=== PATIENT | female | born 1995 | race Caucasian/White ===

== ENCOUNTER 2022-07-14 10:55 | Inpatient (IN) | payer OTHER, SELFPAY ==
[2022-07-14] VITALS (29 sets, daily range): BP systolic 119–176; BP diastolic 69–114; PULSE 73–127; RESP 16–18; TEMP 36.4–37.1; O2SAT 98–99; BMI 31.1
[2022-07-14] MEDS: Lactated Ringers 1,000 ML 200 ML IV (10:45)
[2022-07-14 11:13] LABS: Absolute Lymphocyte Count 1.52 X10^3/uL (0.83-4.51); Absolute Neutrophil Count 5.4 X10^3/uL (2.0-7.7); Basophil# 0.02 X10^3/uL; Basophil% 0.3 % (0-1); Eosinophil# 0.06 X10^3/uL; Eosinophils% 0.8 % (0-5); Hematocrit 38.6 % (37-47); Hemoglobin 13.3 g/dL (12.0-15.0); Lymphocyte # 1.52 X10^3/ul (0.83-4.51); Lymphocyte % 20.4 % (19-41); Mean Corp Hgb Conc 34.5 g/dL (32-36); Mean Corpuscular Hgb 29.1 pg (27.0-32.0); Mean Corpuscular Volume 84.5 fL (81-99); Mean Platelet Vol. 11.3 fl (6.2-12.0); Monocyte# 0.42 X10^3/uL; Monocyte% 5.6 % (0-10); NRBC Flagged by Analyzer 0 % (0-5); Neutrophil # 5.39 X10^3/uL (2.7-7.7); Neutrophil % 72.2 % (47-70); Platelet Count 253 K/mm3 (150-450); RBC Distribution Width CV 12.7 % (11.6-14.6); RBC Distribution Width SD 38.5 fl (35.1-43.9); Red Blood Count 4.57 M/mm3 (4.2-5.4); White Blood Count 7.5 K/mm3 (4.4-11.0)
--- NOTE | 2022-07-14 11:57 | HP.PCM.OB_ITS ---
HPI - General General Date of Admission: 07/14/22 Date of Service: 07/14/22 Chief Complaint: labor HPI Narrative STACY TONEY, is a 26 F who presents in labor. Ctx's started around 7 am and she also had a gush of clear fluid at that time. No constant leaking of fluid and she isnt sure if it was incontinence of urine. No bleeding. Good FM. No GURROLA or vision changes. Maternal Data Information Gestational age: 37w0d [facility] Medical History (Updated 07/14/22 @ 12:[address] Liza Leyva, DO) Anxiety History of pre-term labor Shoulder injury Home Medications diphenhydramine HCl 25 mg capsule (Benadryl) 5 - 10 mg PO TID PRN Sleep/ Congestion 07/14/22 [History Last Taken 07/12/22] vitamin#30 30 mg iron-10 mg iron-folic acid 1 mg-omg3 capsule 1 cap PO DAILY 07/14/22 [History Last Taken 07/13/22] Allergy/AdvReac Type Severity Reaction Status Date / Time amoxicillin Allergy Rash Verified 07/14/22 11:05 cefaclor [From Ceclor] Allergy Rash Verified 07/14/22 11:05 latex AdvReac Rash Verified 07/14/22 11:05 Social History Smoking Status: Former smoker History Elective abortions Hx Para 1 Spontaneous abortions Hx # Term Pregnancies Ectopic pregnancies Hx # Pregnancies Multiple births # of living children Addt'l History: H/o PTD at 36 weeks Abnormal 1 hour GTT but normal 3 hour GTT H/o white coat HTN H/o anxiety NST FHR Rate Baby A FHR Category:: Category I Uterine Activity:: ctx q 4-6 min Vital Signs Vital Signs Vital Signs: 07/14/22 11:54 07/14/22 11:54 07/14/22 11:54 Temperature Temperature Source Temporal Pulse Rate 125 H Blood Pressure 155/105 H BP Systolic 155 BP Diastolic 105 07/14/22 11:54 Temperature 97.8 F Temperature Source Pulse Rate Blood Pressure BP Systolic BP Diastolic Weight Weight: 175 lb 12.8 oz Body Mass Index (BMI) 31.1 Physical Exam Const alert and no apparent distress Constitutional Narrative: Uncomfortable with ctx's Labs Labs Labs: Blood Type Pending Antibody Screen Pending Hct 38.6 % (37-47) Hgb 13.3 g/dL (12.0-15.0) Assessment & Plan (1) 37 weeks gestation of : PLAN: Admit for routine intrapartum care. Patient would like to proceed unmedicated. GBS negative. Cvx 680/-1, AROM performed for small amount of clear fluid. Category 1 tracing. Expected weight < 4,500 g and pelvis adequate. Anticipate vaginal delivery. (2) History of anxiety: (3) White coat syndrome with hypertension: PLAN: No symptoms of pre e. Pre e workup in office negative on 07/06/22. Cont to monitor for symptoms. (4) History of delivery: (5) Active labor at term:
[2022-07-14] MEDS: LACTATED RINGERS 500 ML 999 ML IV (13:13)
[2022-07-14] MEDS: fentaNYL-bupivacaine (epidural) 100 ML BAG EPIDURAL (14:06)
[2022-07-14] MEDS: Oxytocin 10 UNITS/ML Vial IM (14:53)
[2022-07-14] MEDS: miSOPROStol 200 MCG Tablet 1000 MCG RC (14:58)
--- NOTE | 2022-07-14 15:05 | PCM.OPRPT ---
Problems Associated Problem List Diagnoses (1) 37 weeks gestation of : (2) Active labor at term: Report of Operation Date of Procedure: 07/14/22 Pre-Operative Diagnosis: 37 week gestation, active labor at term Post-Operative Diagnosis: As above Surgery/Procedure Performed:: Description of Surgical Findings:: VMI delivered in LORE position. Apgars 9,9. Normal appearing placenta with 3VC. No lacerations. Surgeon: Liza Leyva Type of Anesthesia: Epidural Special Medications: None Specimen's removed: Placenta Drains: Forrest Estimated Blood Loss (mL): 150 Fluids Replaced: N/A Description of Procedure: Patient was complete and pushing. The head of the was delivered in left occiput anterior position followed by the anterior shoulder, posterior shoulder, and body of infant spontaneously without any excessive traction, force, or delay. A vigorous viable male infant was delivered atraumatically and placed on maternal abdomen. The cord was clamped and cut after a 60 sec delay by the father of the baby. The placenta was delivered with fundal massage. The placenta was normal-appearing and intact with a three-vessel cord. IM Pitocin was given. The uterus was boggy and explored and cleared of clot. The uterus firmed with manual massage. No lacerations were noted. Rectal Cytotec was placed. Vaginal sweep was performed. Sponge counts were correct. Grafts/Implants Used: None Complications None Admit VTE Documentation VTE Present on Admission: No
[2022-07-15] VITALS (8 sets, daily range): BP systolic 141–150; BP diastolic 97–102; PULSE 44–98; RESP 16–18; TEMP 36.1–36.9; O2SAT 79–100
--- NOTE | 2022-07-15 01:27 | NURSING ---
Pt states she has white coat syndrome. Pt states she becomes very anxious and shakes when her blood pressure is taken. RN notes MD report also states pt has white coat syndrome. Denies headache, blurry vision, nausea, vomiting. RN notes Fundus is firm, no swelling in legs, reflexes are normal.
[2022-07-15] MEDS: Ibuprofen 600 MG Tablet PO (03:53)
--- NOTE | 2022-07-15 09:23 | PCM.PN.OB ---
Subjective Subjective Pt doing well. Denies GURROLA, vision changes, upper abd pain, malaise. Lochia normal. . No CP, SOb, leg pain. Artur diet and ambulating and voiding well. She reports significant anxiety with BP checks and being here in the hospital. She would like to be discharged as soon as possible. She states as soon as the BP cuff starts to inflate she gets anxious and is unable to calm herself. Objective Data Objective Data Vital Signs: Vital Signs Temp Pulse Resp BP Pulse Ox O2 Del Method 97 F L 98 16 142/100 H 99 Room Air 07/15/22 08:20 07/15/22 08:20 07/15/22 08:20 07/15/22 08:20 07/15/22 08:20 07/15/22 08:20 Oxygen Delivery Method Room Air Weight: 175 lb 12.8 oz Body Mass Index (BMI) 31.1 Intake & Output: Intake and Output for Last 24 Hours 07/13/22 07/14/22 07/15/22 23:59 23:59 23:59 Intake Total 1243.33 / 1243.33 Balance 1243.33 / 1243.33 Lab / Micro Data Result Diagrams: 07/14/22 11:00 Labs: Laboratory Results - last 24 hr 07/14/22 11:00: WBC 7.5, RBC 4.57, Hgb 13.3, Hct 38.6, MCV 84.5, MCH 29.1, MCHC 34.5, RDW Std Deviation 38.5, RDW Coeff of Bobby 12.7, Plt Count 253, MPV 11.3, Immature Gran % (Auto) 0.700, Neut % (Auto) 72.2 H, Lymph % (Auto) 20.4, Marin % (Auto) 5.6, Eos % (Auto) 0.8, Baso % (Auto) 0.3, Absolute Neuts (auto) 5.4, Absolute Lymphs (auto) 1.52, Nucleated RBC % 0 07/14/22 11:00: Blood Type A POSITIVE, Antibody Screen NEGATIVE Physical Exam Const alert and no apparent distress General Appearance: comfortable Extremity Extremity Narrative: 2+ patellar reflexes Assessment & Plan (1) History of anxiety: (2) White coat syndrome with hypertension: (3) Vaginal delivery: PLAN: PPD # 1 s/p . Doing well and desires discharge. Pre e workup in negative. She has remained completely asymptomatic with no pre e symptoms. She notes significant anxiety with BP cuff and being in the hospital. She has a BP cuff at home. Instructed her to check 1-2 times a day and keep a log. Reviewed pre e signs and symptoms and reasons to call. Send note to office staff to have pt return in 1 week for BP check. She is not currently established with a provider for anxiety. Her PCP had her on multiple medications in the past for this and she feels she did not do well on medication. Recommend that she establish with a counselor. Information given on [facility] and she will call tomorrow for an appointment.
--- NOTE | 2022-07-15 09:27 | PCM.DC ---
Discharge Instructions Diet Discharge Diet: No restrictions Activity Discharge Activity: May Drive and May Shower May resume sexual activity in: 6 weeks Ice area for (Minutes): 15 Weight Bearing Status: Weight bearing as tolerated Lifting Restrictions: nothing heavier than baby Additional Activity Instructions:: Check your blood pressure one-two times daily and keep a log. Call if it is 160/110 or higher. Call [facility] to establish with Melyssa Ahn or other provider there. Dressing / Incision Call your doctor if you observe: Fever of 101 or Higher, Coldness, Increased Pain, Numbness or Tingling, Change in Color, Inability to urinate, Inability to have a bowel movement, Using more than 1 pad per hour, Shortness of breath, Dizziness, Fainting spells, Swelling in the ankles, Chest pain, Increased palpitations (irregular heartbeat), Calf discomfort, Uncontrolled pain and - (Severe headache that does not improve with Tylenol, persistent visual changes, if you generally do not feel well, upper abdominal pain that will not go away) Follow Up Care When: 1 week for blood pressure check - a message was sent to our office staff regarding this for you 6 week visit Test Results: Test results from this visit will be discussed in further detail at your follow-up appointment, if applicable. Discharge Plan Admission Admit Date/Time: 07/14/22 10:55 Primary Reason for Your Visit: delivery Attending Provider: Liza Leyva Primary Care Provider: Yin Quiroz Primary Instructions Patient Instructions: After a Vaginal Discharge Orders/Prescriptions Prescriptions: Continued PNV #[id number] 30 mg iron-10 mg iron-1 mg Capsule 1 cap PO DAILY diphenhydramine HCl [Benadryl] 25 mg Capsule 5 - 10 mg PO TID PRN (Reason: Sleep/Congestion) Referrals / Follow Up: Care Physician,No Primary [Primary Care Provider] - Disposition Disposition (needs filled in before D/C Order can be placed): Home, Self Care
== END 2022-07-15 16:20 | disposition home or self-care (01) | DRG 807 ==
LOC: WP 10:56
PROVIDERS: Admitting Provider Obstetrics & Gynecology; Referring Provider Obstetrics & Gynecology; Visit Provider Obstetrics & Gynecology
DX: O10.02 Pre-existing essential hypertension complicating childbirth (principal); Z37.0 Single live birth; O99.344 Other mental disorders complicating childbirth; F41.9 Anxiety disorder, unspecified; Z87.891 Personal history of nicotine dependence; Z79.2 Long term (current) use of antibiotics; Z3A.37 37 weeks gestation of pregnancy
CPT/HCPCS: 59025; 59050; 85025; 86850; 86900; 86901; 99218; J7120; G0378